=== PATIENT | female | born 1985 | race American Indian/Alaskan Native ===

== ENCOUNTER 2016-02-12 12:46 | Observation (INO) | payer MEDICAID ==
--- NOTE | 2016-02-12 13:19 | History and Physical Report ---
History of Present Illness Date of examination: 02/12/16 Date of admission: 02/12/16 12:46 Chief complaint: Low normal amniotic fluid History of present illness: 1-year-old at 32+6 weeks presents with above complaints and issues, she is a lifecycle [facility] patient. Social historypatient seen at a for history of hypertension, was seen today and noted to have an SAMANTHA of 7. Patient did complain of noticing possible leaking of fluid ~ 1 week ago so she is sent to the hospital for observation and care. 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 denies: smoking, alcohol abuse, prescription drug abuse, IV drug use - Obstetrical History Expected Date of Delivery: 04/02/16 Actual Gestation: 32 Week(s) 6 Day(s) : 3 Para: 1 Hx # Term Pregnancies: 0 Number of Pregnancies: 1 Number of Living Children: 1 Medications and Allergies Allergies Allergy/AdvReac Type Severity Reaction Status Date / Time diphenhydramine HCl Allergy Swelling Verified 12/03/12 18:50 [From Benadryl] Home Medications Medication Instructions Recorded Confirmed Last Taken Type HYDROcodone/APAP 5-325 [[place] 1 each PO Q6HR PRN #20 tablet 06/26/13 Unknown Rx 5-325 mg TAB] Orphenadrine (Nf) [Norflex] 100 mg PO Q12H PRN #14 tablet 06/26/13 Unknown Rx Review of Systems Constitutional: no fever, no chills, no sweats Cardiovascular: no chest pain, no orthopnea, no palpitations, no edema, no syncope, no lightheadedness, no shortness of breath Respiratory: no hemoptysis, no shortness of breath, no dyspnea on exertion Gastrointestinal: no abdominal pain, no nausea, no vomiting, no diarrhea Genitourinary: no vaginal bleeding (NO VB noted now), no vaginal discharge, no leakage of fluid (No leaking noted now per patient) - Physical Exam Cardiovascular: Regular rate, Normal S1, Normal S2 Lungs: Positive: Clear to auscultation Abdomen: Positive: normal appearance, soft. Negative: distention, tenderness, guarding, rigidity Genitourinary (Female): Positive: normal external genitalia Uterus: Positive: enlarged (EFW ~ 3000) Adnexa: both: normal Extremities: Positive: normal - Obstetrical FHR: category 1 Results All other labs normal. Assessment and Plan A: 30 y/o at 32+6 wks with low normal SAMANTHA -BPP 09/15 -CHTN P: -Admit -Will rule out rupture of membranes -Fluid hydration -??Repeat BPP in the a.m. - Patient Problems (1) 32 weeks gestation of Current Visit: Yes Status: Acute (2) Amniotic fluid index borderline low Current Visit: Yes Status: Acute
--- NOTE | 2016-02-12 14:04 | Event Note ---
Date: 02/12/16 Patient examined, negative nitrazine test and no fluid noted on exam; does not appear to be ruptured at this time. She is wearing a pad over 1 hour which is dry. Discussed patient again with a [facility]OCK[facility]ER, simón. Plan is to fluid hydrate and in discharge patient. She is to follow-up at [facility] office tomorrow for repeat BPP and SAMANTHA. Patient plans to discuss 17 HP and Celestone course with [facility] next visit
[2016-02-12 14:09] VITALS: BP 116/66
[2016-02-12] MEDS ORDERED: LACTATED RINGERS 500 ML IV ONE (14:30)
--- NOTE | 2016-02-12 16:43 | Event Note ---
Date: 02/12/16 Continued question about possible ruptured membrane. Sterile speculum exam performed with no fluid noted. OS closed Will D/C now, follow-up in clinic tomorrow for repeat SAMANTHA
== END 2016-02-12 17:20 | disposition home or self-care (01) ==
LOC: LD 12:46
PROVIDERS: ADMIT Obstetrics & Gynecology; ATTEND Obstetrics & Gynecology
DX: O41.03X0 Oligohydramnios, third trimester, not applicable or unspecified (principal); O10.913 Unspecified pre-existing hypertension complicating pregnancy, third trimester; Z3A.32 32 weeks gestation of pregnancy; Z98.890 Other specified postprocedural states
CPT/HCPCS: 59025; G0378; G0379; J7120; 96360

== ENCOUNTER 2016-02-13 17:00 | Outpatient (CLI) | payer MEDICAID ==
--- NOTE | 2016-02-14 07:46 | Ultrasound Report ---
BIOPHYSICAL PROFILE: INDICATION: Decreased movement. COMPARISON: None similar. TECHNIQUE: Transabdominal ultrasound with Doppler interrogation. 2 - breathing movements 2 - movements 2 - posture and tone 2 - Qualitative amniotic fluid volume 8 - TOTAL SCORE OF POSSIBLE 8 Heart Rate (bpm) 143
== END 2016-02-13 18:40 | disposition home or self-care (01) ==
LOC: TRG 17:00
PROVIDERS: ATTEND Obstetrics & Gynecology
DX: O36.8190 Decreased fetal movements, unspecified trimester, not applicable or unspecified (principal); O77.9 Labor and delivery complicated by fetal stress, unspecified; O47.9 False labor, unspecified; Z3A.00 Weeks of gestation of pregnancy not specified
CPT/HCPCS: 59025; 76819

== ENCOUNTER 2016-02-19 11:56 | Inpatient (IN) | payer MEDICAID ==
--- NOTE | 2016-02-19 15:20 | History and Physical Report ---
History of Present Illness Date of examination: 02/19/16 Date of admission: 02/19/16 14:02 Chief complaint: Leaking fluid since Wednesday History of present illness: Pt is a 30yo BF EDC 04/02/16; EGA 33 6/7 weeks presents from the office for evaluation of ROM. She states she was leaking since Wednesday, but none today , and her SAMANTHA is 5.2 She received care at [facility] since 14 weeks and course has been complicated by PTD @ 35 weeks; Marginal placenta previa and Chronic hypertension. She was evaluated at [facility] 02/12/16 when her SAMANTHA was 7cm. records are available. Past History Past Medical History: hypertension Past Surgical History: cholecystectomy, tonsillectomy, other (nose) Family/Genetic History: diabetes, hypertension, sickle cell/trait Social history: no significant social history, single - Obstetrical History Expected Date of Delivery: 04/02/16 Actual Gestation: 33 Week(s) 6 Day(s) : 3 Medications and Allergies Allergies Allergy/AdvReac Type Severity Reaction Status Date / Time diphenhydramine HCl Allergy Swelling Verified 12/03/12 18:50 [From Benadryl] latex Allergy Rash Verified 02/13/16 17:57 Home Medications Medication Instructions Recorded Confirmed Last Taken Type HYDROcodone/APAP 5-325 [[place] 1 each PO Q6HR PRN #20 tablet 06/26/13 Unknown Rx 5-325 mg TAB] Orphenadrine (Nf) [Norflex] 100 mg PO Q12H PRN #14 tablet 06/26/13 Unknown Rx Review of Systems All systems: negative - Vital Signs Vital signs: Vital Signs Pulse BP 90 124/72 02/19/16 12:30 02/19/16 12:30 Temp Pulse Resp BP Pulse Ox 90 124/72 02/19/16 12:30 02/19/16 12:30 - Physical Exam Breasts: Positive: deferred Cardiovascular: Regular rate Lungs: Positive: Clear to auscultation Abdomen: Positive: normal appearance, soft Genitourinary (Female): Positive: normal external genitalia Cervix: Positive: other (No fluid seen on Valsalva) Uterus: Positive: enlarged Extremities: Positive: normal - Obstetrical FHR: category 1 Uterine Contraction Monitor Mode: External Results All other labs normal. Ultrasound: pending Assessment and Plan - Patient Problems (1) 33 weeks gestation of Diagnosis Date: 02/19/16 Current Visit: Yes Status: Acute Plan to address problem: A: IUP @ 33 6/7 weeks Oligohydramnios Chronic hypertension P: Admit to L&D Begin IV hydration, Steroids, Antibiotics Monitor BP (2) Oligohydramnios antepartum Diagnosis Date: 02/19/16 Current Visit: Yes Status: Acute Qualifiers: Fetus number: single or unspecified fetus Trimester: third trimester Qualified Code(s): O41.03X0 - Oligohydramnios, third trimester, not applicable or unspecified (3) Chronic hypertension affecting Diagnosis Date: 02/19/16 Current Visit: Yes Status: Chronic
[2016-02-19] MEDS ORDERED: TYLENOL PO PRN (15:40)
[2016-02-19] MEDS ORDERED: SENOKOT S PO PRN (15:40)
[2016-02-19] MEDS ORDERED: AMBIEN PO PRN (15:40)
[2016-02-19] MEDS ORDERED: MYLICON PO PRN (15:40)
[2016-02-19] MEDS ORDERED: COLACE PO PRN (15:40)
[2016-02-19] MEDS ORDERED: ZOFRAN IV PRN (15:40)
[2016-02-19] MEDS ORDERED: MILK OF MAGNESIA PO PRN (15:40)
[2016-02-19] MEDS ORDERED: CELESTONE SOLUSPAN IM SCH (16:00)
[2016-02-19] MEDS: LACTATED RINGERS 1,000 ML IV SCH (17:20)
[2016-02-19] MEDS: POLYCILLIN/NS 2 GM/100 ML 100 ML IV SCH (17:21)
[2016-02-19] MEDS: ALDOMET PO SCH (22:42)
[2016-02-20] MEDS: LACTATED RINGERS 1,000 ML IV SCH (01:46)
[2016-02-20] MEDS: POLYCILLIN/NS 2 GM/100 ML 100 ML IV SCH ×3 (01:47→11:45)
[2016-02-20] MEDS: ERYTHROMYCIN LACTOBIONATE 250 MG in NACL 0.9% 100 ML IV SCH ×3 (03:29→16:08)
[2016-02-20] MEDS: ALDOMET PO SCH ×2 (05:47→14:00)
[2016-02-20 08:22] LABS: Basophils % (Auto) 1.1 % (0.0-1.8); Hematocrit 33.5 % (30.3-42.9); Hemoglobin 10.6 gm/dl (10.1-14.3); Mean Corpuscular HGB Conc 32 % (30-34); Mean Corpuscular Hemoglobin 28 pg (28-32); Mean Corpuscular Volume 87 fl (79-97); Platelet Count 238 K/mm3 (140-440); Red Blood Count 3.85 M/mm3 (3.65-5.03); Red Cell Distribution Width 16.6 % (13.2-15.2)
--- NOTE | 2016-02-20 09:01 | Admit Criteria Form ---
Admission Criteria Documentation: OBSTETRIC AND GYNECOLOGIC DISEASE GRG Clinical Indications for Admission to Inpatient Care (Place 'X' for any and all applicable criteria): Hospital admission is needed for appropriate care of the patient because of ANY ONE of the following (1)(2)(3): [ ]I. Hemodynamic instability, as indicated by ALL of the following (1)(2)(3)( 4)(5): [ ]a) Vital signs or other findings not as expected for chronic patient condition or baseline [ ]b) Instability indicated by ANY ONE of the following: [ ]i) Hypotension [ ]ii) Symptomatic tachycardia unresponsive to treatment (eg, analgesia, fluids, sedation as indicated) [ ]iii) Inadequate perfusion indicated by ANY ONE of the following: [ ]A. Lactic acidosis (greater than 2 mmol/ L) [ ]B. New abnormal capillary refill ( greater than 3 seconds) [ ]C. Reduced urine output [ ]D. New altered mental status [ ]iv) Orthostatic vital sign changes unresponsive to treatment (eg, fluids) [ ]v) Multiple IV fluid boluses required to maintain adequate blood pressure or perfusion [ ]vi) IV inotropic or vasopressor medication required to maintain adequate blood pressure or perfusion [ ]II. Obstetric infection requiring hospitalization indicated by ANY ONE of the following(13)(14): [ ]a) Chorioamnionitis [ ]b) Endometritis (except mild endometritis) [ ]c) Pelvic abscess [ ]d) Peritonitis [ ]e) Septic pelvic thrombophlebitis [ ]III. Amniotic fluid or pulmonary embolism(4)(5)(6) [ ]IV. Suspected peritonitis or ectopic requiring monitoring beyond scope of 24 hours or observation care(7)(8) [ ]V. compromise requiring hospitalization indicated by ALL of the following(9)(10): [ ]a) compromise indicated by ANY ONE of the following(11): [ ]i) Abnormal heart rate monitoring [ ]ii) Abnormal contraction stress test [ ]iii) Abnormal biophysical profile [ ]iv) Abnormal Doppler flow in vessels (ie, Doppler velocimetry) (12) [ ]b) Persistence of compromise indicators during evaluation and observation monitoring [ ]. Ovarian hyperstimulation syndrome requiring hospitalization[A] indicated by ALL of the following(15): [ ]a) Recent ovarian stimulation with gonadotropins, or evidence on ultrasound of spontaneous emergence of large number of ovarian follicles [ ]b) Evidence of severe ovarian hyperstimulation syndrome indicated by ANY ONE of the following: [ ]i) Abdominal pain unresponsive to oral therapy [ ]ii) Acute respiratory distress syndrome [ ]iii) Electrolyte imbalance ( eg, hyponatremia, hyperkalemia) [ ]iv) Elevated liver enzymes [ ]v) Evidence of thromboembolism [ ]vi) Hemoconcentration (hematocrit greater than 45 % (0.45)) [ ]vii) Inability to maintain oral intake adequate to prevent hemoconcentration [ ]viii) Marked hypotension from baseline (eg, SBP 20 mmHg below patients usual pressure) [ ]ix) Oliguria or anuria [ ]x) Ovarian torsion [ ]xi) Pleural or pericardial effusion on x-ray or echocardiogram [ ]xii) Rapid increase in serum creatinine to greater than 1.2 mg/dL (106 micromoles/L) or creatinine clearance less than 50 mL/min/1.73m2 (0.84 mL/ sec/1.73m2) [ ]xiii) Ruptured ovarian cyst with hemorrhage [ ]xiv) Severe abdominal pain or peritoneal signs [ ]xv) Tense ascites that cannot be managed with paracentesis in outpatient setting [ ]VII.Pelvic infection requiring hospitalization indicated by ANY ONE of the following (16): [ ]a) Outpatient treatment has failed or is not appropriate (eg, inpatient monitoring required) [ ]b) Pelvic abscess [ ]c) Surgical emergency cannot be excluded (eg, rigid abdomen) [ ]d) Vomiting precluding outpatient and observation care management VIII. loss complications requiring inpatient medical treatment indicated by ANY ONE of the following (4)(7)(9): [ ]a) Fever [ ]b) Peritonitis [ ]c) Sepsis [ ]d) Severe abdominal pain [ ]IX. or patient requiring monitoring for severe heart failure, pulmonary disease, or other comorbid condition (eg, peripartum cardiomyopathy) (4)(17) [ ]X. patient with rupture of membranes requiring hospitalization indicated by ANY ONE of the following: [ ]a) Chorioamnionitis, cloudy amniotic fluid, or other evidence of infection [ ]b) compromise or other need for monitoring (11) [ ]c) Gestation longer than 23 weeks and ANY ONE of the following: [ ]i) Abnormal (noncephalic) presentation [ ]ii) Inadequate home environment (eg, home too far from hospital, unable to rapidly return to hospital) [ ]d) Temperature greater than 100.4 degrees F (38 degrees C)( oral) [ ]e) Threatened labor requiring monitoring beyond scope (eg, over 24 hours) of observation Care [ ] XI. complications, including severe lacerations, infections, or retained placenta (19) [ ] XII.Uterine bleeding with high-risk features indicated by ANY ONE of the following (4): [ ]a) Active major hemorrhage (eg, hemorrhage) [ ]b) Coagulopathy with active bleeding [ ]c) Gestational trophoblastic disease (eg, molar ) (20 ) [ ]d) (longer than 23 weeks) and ANY ONE of the following: [ ]i) Pain [ ]ii) Placental abruption, known or suspected [ ]iii) Placenta accrete, known or suspected(21) [ ]iv) Placenta previa, known or suspected [ ]v) Vasa previa [ ]e) Severe anemia [X ]XIII. Obstetric or Gynecologic Disease, condition or symptom for which ANY ONE of the following: [X ]a) Emergency and observation care have failed or are not considered appropriate ( Also use General Criteria: Observation Care Criteria as appropriate) [ ]b) Presence of a General Admission Criteria or Pediatric General Admission Criteria The original [facility] [employer] content created by [facility] (now [employer]) has been revised. The portions of the content which have been revised are identified through the use of italic text or in bold, and [facility] has neither reviewed nor approved the modified material.All other unmodified content is copyright [facility]. Please see references footnoted in the original [facility] edition 2016 Admission Criteria Met: Yes
[2016-02-20] MEDS ORDERED: PRENATAL VITAMIN PO SCH (10:00)
--- NOTE | 2016-02-20 10:18 | Progress Note ---
Assessment and Plan - Patient Problems (1) 33 weeks gestation of Diagnosis Date: 02/19/16 Current Visit: Yes Status: Resolved (2) Oligohydramnios antepartum Diagnosis Date: 02/19/16 Current Visit: Yes Status: Resolved Qualifiers: Fetus number: single or unspecified fetus Trimester: third trimester Qualified Code(s): O41.03X0 - Oligohydramnios, third trimester, not applicable or unspecified (3) Chronic hypertension affecting Diagnosis Date: 02/19/16 Current Visit: Yes Status: Chronic (4) 34 weeks gestation of Diagnosis Date: 02/20/16 Current Visit: Yes Status: Acute Plan to address problem: A: IUP @ 34 0/7 weeks Chronic hypertension - stable on Aldomet 500mg TID Oligohydramnios - resolved with IV hydration P: May go home today after 2nd dose of steroids. Subjective - Subjective Date of service: 02/20/16 Principal diagnosis: IUP @ 34 0/7 weeks; Oligohydramnios; Chronic hypertension Interval history: Pt is a 30yo BF EDC 04/02/16; EGA 34 0/7 weeks presented from the office for evaluation of ROM. She states she was leaking since Wednesday, but none since admission when her SAMANTHA was 5.2 Repeat SAMANTHA today is 10.0 and BP's have been 117- 132/70-77 on Aldomet 500mg TID. Patient reports: movement normal, no new complaints, no loss of fluid, no vaginal bleeding, no contractions Objective - Vital Signs Vital Signs: Vital Signs - 12hr 02/19/16 02/19/16 02/19/16 22:42 22:43 22:47 Temperature Pulse Rate 83 83 80 Pulse Rate [ From Monitor] Respiratory Rate Blood Pressure 124/72 124/72 127/70 Blood Pressure [Left Arm] 02/19/16 02/20/16 02/20/16 23:47 00:47 01:49 Temperature Pulse Rate 93 H 86 91 H Pulse Rate [ From Monitor] Respiratory Rate Blood Pressure 126/66 117/64 118/61 Blood Pressure [Left Arm] 02/20/16 02/20/16 02/20/16 02:47 04:18 04:47 Temperature Pulse Rate 96 H 97 H 75 Pulse Rate [ From Monitor] Respiratory Rate Blood Pressure 110/64 125/74 124/72 Blood Pressure [Left Arm] 02/20/16 02/20/16 02/20/16 05:46 05:47 06:48 Temperature Pulse Rate 86 79 83 Pulse Rate [ From Monitor] Respiratory Rate Blood Pressure 126/73 129/74 132/77 Blood Pressure [Left Arm] 02/20/16 02/20/16 02/20/16 07:52 07:53 08:47 Temperature 97.5 F L Pulse Rate 87 93 H Pulse Rate [ 87 From Monitor] Respiratory 18 Rate Blood Pressure 124/77 117/70 Blood Pressure 124/77 [Left Arm] 02/20/16 09:47 Temperature Pulse Rate 92 H Pulse Rate [ From Monitor] Respiratory Rate Blood Pressure 128/72 Blood Pressure [Left Arm] - Exam Abdomen: Present: normal appearance, soft Uterus: Present: normal FHR: category 1 Uterine Contraction Monitor Mode: External - Labs Labs: Abnormal Labs 02/20/16 07:46 RDW 16.6 H Lymph % (Auto) 9.6 L Lymph # 1.1 L Seg Neutrophils % 86.0 H Seg Neutrophils # 9.5 H Laboratory Results - last 24 hr 02/20/16 02/20/16 07:46 07:46 WBC 11.0 RBC 3.85 Hgb 10.6 Hct 33.5 MCV 87 MCH 28 MCHC 32 RDW 16.6 H Plt Count 238 Lymph % (Auto) 9.6 L Pershing % (Auto) 3.3 Eos % (Auto) 0.0 Baso % (Auto) 1.1 Lymph # 1.1 L Pershing # 0.4 Eos # 0.0 Baso # 0.1 Seg Neutrophils % 86.0 H Seg Neutrophils # 9.5 H Blood Type A POSITIVE Antibody Screen Negative - Results US- obstetric: report reviewed (SAMANTHA 10.0; Ant right lateral placenta)
--- NOTE | 2016-02-20 10:34 | Discharge Summary ---
Providers - Providers Date of Admission: 02/19/16 14:02 Date of discharge: 02/20/16 Attending physician: VICKY SAENZ MD Primary care physician: VICKY SAENZ MD Hospitalization Reason for admission: IUP - , observation, other (Oligohydramnios; Chronic hypertension) Discharge diagnosis: other (IUP @ 34 0/7 weeks; Chronic hypertension - stable; Oligohydramnios - resolved) Pertinent studies: Repeat U/S showed SAMANTHA 10.0 Hospital course: Pt is a 30yo BF EDC 04/02/16; EGA 34 0/7 weeks presented from the office for evaluation of ROM. She states she was leaking since Wednesday, but none since admission when her SAMANTHA was 5.2 She was admitted for Observation and received IV hydration. Repeat SAMANTHA today is 10.0 and BP's have been 117-132/70-77 on Aldomet 500mg TID. She will therefore be discharged to home today after her 2nd dose of Celestone. Condition at discharge: Good Disposition: DISCHARGED TO HOME OR SELFCARE - Discharge Diagnoses (1) 33 weeks gestation of Status: Resolved (2) Oligohydramnios antepartum Status: Resolved Qualifiers: Fetus number: single or unspecified fetus Trimester: third trimester Qualified Code(s): O41.03X0 - Oligohydramnios, third trimester, not applicable or unspecified (3) Chronic hypertension affecting Status: Chronic (4) 34 weeks gestation of Status: Acute Plan - Provider Discharge Summary Activity: routine, no sex for 6 weeks, no heavy lifting 4 weeks, no strenuous exercise Diet: routine Instructions: routine Additional instructions: [] Smoking cessation referral if applicable(refer to patient education folder for contact #) [] Refer to [facility] Booklet Call your doctor immediately for: * Fever > 100.5 * Heavy vaginal bleeding ( >1 pad per hour) * Severe persistent headache * Shortness of breath * Reddened, hot, painful area to leg or breast * Drainage or odor from incision. * Keep incision clean and dry at all times and follow doctor's instructions regarding bathing/showering
--- NOTE | 2016-02-20 13:14 | Ultrasound Report ---
Limited OB ultrasound: There is a espinosa intrauterine gestation in cephalic position with a heart rate of 138 beats per minute. There is a grade 1 felipa-right lateral placenta. No placental abnormalities identified. The SAMANTHA is 10 cm which is within the normal range. The estimated gestational age is 34 weeks. No other information obtained.
[2016-02-20 13:20] LABS: Bacteria,Urine 1+ /HPF (Negative); Bilirubin,Urine NEG (Negative); Blood,Urine NEG (Negative); Ketones,Urine TR mg/dL (Negative); Leukocyte Esterase,Urine NEG (Negative); Mucus,Urine FEW /HPF; Nitrite,Urine NEG (Negative); Protein,Urine <15 mg/dL mg/dL (Negative); Urobilinogen,Urine < 2.0 mg/dL (<2.0); WBC,Urine < 1.0 /HPF (0.0-6.0)
[2016-02-20 16:51] VITALS: BP 120/58
[2016-02-20] MEDS ORDERED: CELESTONE SOLUSPAN IM ONE (17:35)
[2016-02-21] MEDS ORDERED: CELESTONE SOLUSPAN IM SCH (18:30)
== END 2016-02-20 17:41 | disposition home or self-care (01) | DRG 781 ==
LOC: TRG 11:56 → LD 11:56 → OBSVTOIN 14:02 → LD 14:02 → TRG 14:02 → LD 18:44
PROVIDERS: ADMIT Obstetrics & Gynecology; ATTEND Obstetrics & Gynecology
DX: O42.913 Preterm premature rupture of membranes, unspecified as to length of time between rupture and onset of labor, third trimester (principal); O10.913 Unspecified pre-existing hypertension complicating pregnancy, third trimester; O41.03X0 Oligohydramnios, third trimester, not applicable or unspecified; Z90.49 Acquired absence of other specified parts of digestive tract; Z88.8 Allergy status to other drugs, medicaments and biological substances; Z91.040 Latex allergy status; Z3A.33 33 weeks gestation of pregnancy; O44.23 Partial placenta previa NOS or without hemorrhage, third trimester
CPT/HCPCS: 36415; 76815; 81001; 85025; 86850; 86900; 86901; J0290; J0702; J1364; J7120

== ENCOUNTER 2016-02-25 17:06 | Outpatient (CLI) | payer MEDICAID ==
[2016-02-25] MEDS ORDERED: LACTATED RINGERS 500 ML IV ONE (18:00)
[2016-02-25 18:40] LABS: Bilirubin,Urine NEG (Negative); Blood,Urine NEG (Negative); Ketones,Urine NEG (Negative); Leukocyte Esterase,Urine NEG (Negative); Mucus,Urine FEW /HPF; Nitrite,Urine NEG (Negative); Protein,Urine <15 mg/dL mg/dL (Negative); Urobilinogen,Urine < 2.0 mg/dL (<2.0)
[2016-02-25 18:46] VITALS: BP 108/64
--- NOTE | 2016-02-26 07:11 | Ultrasound Report ---
BIOPHYSICAL PROFILE: INDICATION: Vaginal bleeding. COMPARISON: 02/13/2016. TECHNIQUE: Transabdominal ultrasound with Doppler interrogation. 2 - breathing movements 2 - movements 2 - posture and tone 2 - Qualitative amniotic fluid volume 8 - TOTAL SCORE OF POSSIBLE 8 Heart Rate (bpm) 142
--- NOTE | 2016-02-26 07:13 | Ultrasound Report ---
OB LIMITED INDICATION: Vaginal bleeding. SAMANTHA, placenta scan. COMPARISON: 02/20/2016 TECHNIQUE: Transabdominal grayscale ultrasound with Doppler interrogation. Gestation: [place] Position: Cephalic Amniotic Fluid: WNL (7-24 cm) SAMANTHA = 11.8 cm Placenta: Anterior and right lateral; no evidence of abruption. Placental Grade: I Heart Rate: 142 BPM
== END 2016-02-25 19:46 | disposition home or self-care (01) ==
LOC: TRG 17:06
PROVIDERS: ATTEND Obstetrics & Gynecology
DX: O46.90 Antepartum hemorrhage, unspecified, unspecified trimester (principal); O77.9 Labor and delivery complicated by fetal stress, unspecified; Z3A.00 Weeks of gestation of pregnancy not specified
CPT/HCPCS: 59025; 76815; 76819; 81001; 96360; J7120

== ENCOUNTER 2016-03-20 18:49 | Inpatient (IN) | payer MEDICAID ==
[2016-03-20] MEDS ORDERED: BRETHINE SUB-Q PRN (20:09)
[2016-03-20] MEDS ORDERED: BRETHINE IVP PRN (20:09)
[2016-03-20] MEDS ORDERED: ePHEDrine SULFATE IV PRN (20:09)
[2016-03-20] MEDS ORDERED: MINERAL OIL PO PRN (20:09)
--- NOTE | 2016-03-20 20:26 | History and Physical Report ---
<ARTHUR BERNSTEIN - Last Filed: 03/20/16 20:15> History of Present Illness Date of examination: 03/20/16 Date of admission: 03/20/16 18:49 Chief complaint: Here for induction of labor secondary to hypertension and oligohydramnious. Induction recommended by [facility] History of present illness: 30 YO now 38.1 weeks with care at [facility] since 14 weeks gestation.Chronic hypertension controlled with Methyldopa 500 mg tid. She has been co-managed with [facility]. Past History Past Medical History: hypertension Past Surgical History: cholecystectomy, tonsillectomy, other (adenoids, nose surgery) Family/Genetic History: diabetes, heart disease, sickle cell/trait Social history: no significant social history - Obstetrical History Expected Date of Delivery: 04/02/16 Actual Gestation: 38 Week(s) 1 Day(s) : 3 Para: 1 Number of Pregnancies: 1 Spontaneous Abortions: 1 Number of Living Children: 1 Medications and Allergies Allergies Allergy/AdvReac Type Severity Reaction Status Date / Time diphenhydramine HCl Allergy Swelling Verified 12/03/12 18:50 [From Benadryl] latex Allergy Rash Verified 02/13/16 17:57 Home Medications Medication Instructions Recorded Confirmed Last Taken Type HYDROcodone/APAP 5-325 [[place] 1 each PO Q6HR PRN #20 tablet 06/26/13 Unknown Rx 5-325 mg TAB] Orphenadrine (Nf) [Norflex] 100 mg PO Q12H PRN #14 tablet 06/26/13 Unknown Rx Review of Systems All systems: negative - Vital Signs Vital signs: Vital Signs Pulse BP 95 H 124/70 03/20/16 19:45 03/20/16 19:45 Temp Pulse Resp BP Pulse Ox 98.1 F 93 H 18 118/67 97 03/20/16 20:09 03/20/16 20:12 03/20/16 20:09 03/20/16 20:11 03/20/16 20:12 Results All other labs normal. <MELY REILLY - Last Filed: 03/21/16 10:28> History of Present Illness Date of admission: 03/20/16 18:49 Medications and Allergies Active Meds: Active Medications Fentanyl (Sublimaze) 100 mcg IV Q2H PRN PRN Reason: Labor Pain Last Admin: 03/21/16 07:44 Dose: 100 mcg Lactated Ringer's (Lactated Ringers) 1,000 mls @ 125 mls/hr IV DIRECT YOAN Last Admin: 03/21/16 09:21 Dose: 125 mls/hr Oxytocin/Sodium Chloride (Pitocin/Ns 20 Unit/1000ml Drip) 20 unit in 1,000 mls @ 125 mls/hr IV DIRECT YOAN Oxytocin/Sodium Chloride (Pitocin/Ns 30 Unit/500ml) 30 unit in 500 mls @ 1 mls/ hr IV TITR YOAN; 1 MILLIUNITS/MIN PRN Reason: Protocol Last Admin: 03/21/16 09:19 Dose: 6 milliunits/min, 6 mls/hr Mineral Oil (Mineral Oil) 30 ml PO QHS PRN PRN Reason: Constipation - Vital Signs Vital signs: Vital Signs Pulse BP 95 H 124/70 03/20/16 19:45 03/20/16 19:45 Temp Pulse Resp BP Pulse Ox 98.1 F 80 18 120/69 97 03/21/16 07:30 03/21/16 10:19 03/21/16 07:30 03/21/16 10:19 03/21/16 10:19 - Physical Exam Cardiovascular: Regular rate Lungs: Positive: Normal air movement Abdomen: Positive: soft Vagina: Positive: normal moisture Uterus: Positive: enlarged, normal contour Extremities: Positive: normal Deep Tendon Reflex Grade: Normal +2 - Obstetrical FHR: category 1 Uterine Contraction Monitor Mode: External Cervical Dilatation: 4 (per RN) Cervical Effacement Percentage: 60 station: -3 Uterine Contraction Pattern: Regular Uterine Contraction Intensity: Moderate Results Result Diagrams: 03/20/16 20:50 Abnormal lab results 03/20/16 Range/Units 20:50 RDW 16.3 H (13.2-15.2) % All other labs normal. Assessment and Plan A: 30 yo at 38.2 in for IOL for chronic HTN and oligo per [facility] direction GBS negative Reassuring status with category 1 tracing Increasing pain with contractions BP stable P: Continue routine care Pitocin augmentation Epidural as desired. Expect vaginal delivery
[2016-03-20] MEDS ORDERED: PITOCin/NS 20 UNIT/1000ML DRIP 20 UNIT/1,000 ML BAG IV SCH (21:00)
[2016-03-20 21:21] LABS: Hematocrit 32.8 % (30.3-42.9); Hemoglobin 10.4 gm/dl (10.1-14.3); Mean Corpuscular HGB Conc 32 % (30-34); Mean Corpuscular Hemoglobin 28 pg (28-32); Mean Corpuscular Volume 87 fl (79-97); Platelet Count 265 K/mm3 (140-440); Red Blood Count 3.76 M/mm3 (3.65-5.03); Red Cell Distribution Width 16.3 % (13.2-15.2)
--- NOTE | 2016-03-20 22:03 | Progress Note ---
Subjective - Subjective Date of service: 03/20/16 Interval history: Asked to review tracing. Fetus with run of tachycardia but now resolved. Currently has mod variability, no decels Patient reports: loss of fluid, movement normal, no vaginal bleeding Objective - Vital Signs Vital Signs: Vital Signs - 12hr 03/20/16 03/20/16 03/20/16 19:45 20:02 20:07 Temperature Pulse Rate 95 H 105 H 97 H Pulse Rate [ Right From Monitor] Respiratory Rate Blood Pressure 124/70 Blood Pressure [Right Arm] O2 Sat by Pulse 98 97 Oximetry 03/20/16 03/20/16 03/20/16 20:09 20:11 20:12 Temperature 98.1 F Pulse Rate 97 H 93 H Pulse Rate [ 92 H Right From Monitor] Respiratory 18 Rate Blood Pressure 118/67 Blood Pressure 118/67 [Right Arm] O2 Sat by Pulse 97 97 Oximetry 03/20/16 03/20/16 03/20/16 20:17 20:22 20:27 Temperature Pulse Rate 91 H 94 H 95 H Pulse Rate [ Right From Monitor] Respiratory Rate Blood Pressure Blood Pressure [Right Arm] O2 Sat by Pulse 97 97 98 Oximetry 03/20/16 03/20/16 03/20/16 20:32 20:37 20:42 Temperature Pulse Rate 102 H 100 H 103 H Pulse Rate [ Right From Monitor] Respiratory Rate Blood Pressure Blood Pressure [Right Arm] O2 Sat by Pulse 97 98 97 Oximetry 03/20/16 03/20/16 03/20/16 20:47 20:52 20:57 Temperature Pulse Rate 91 H 99 H 86 Pulse Rate [ Right From Monitor] Respiratory Rate Blood Pressure Blood Pressure [Right Arm] O2 Sat by Pulse 98 97 97 Oximetry 03/20/16 03/20/16 03/20/16 21:02 21:07 21:12 Temperature Pulse Rate 81 87 92 H Pulse Rate [ Right From Monitor] Respiratory Rate Blood Pressure Blood Pressure [Right Arm] O2 Sat by Pulse 99 97 98 Oximetry 03/20/16 03/20/16 03/20/16 21:17 21:22 21:27 Temperature Pulse Rate 90 91 H 88 Pulse Rate [ Right From Monitor] Respiratory Rate Blood Pressure Blood Pressure [Right Arm] O2 Sat by Pulse 97 97 98 Oximetry 03/20/16 03/20/16 03/20/16 21:32 21:37 21:42 Temperature Pulse Rate 92 H 95 H 98 H Pulse Rate [ Right From Monitor] Respiratory Rate Blood Pressure Blood Pressure [Right Arm] O2 Sat by Pulse 96 97 97 Oximetry 03/20/16 03/20/16 03/20/16 21:47 21:52 21:57 Temperature Pulse Rate 89 90 88 Pulse Rate [ Right From Monitor] Respiratory Rate Blood Pressure Blood Pressure [Right Arm] O2 Sat by Pulse 97 97 97 Oximetry - Exam FHR: category 1 - Labs Labs: Abnormal Labs 03/20/16 20:50 RDW 16.3 H Laboratory Results - last 24 hr 03/20/16 03/20/16 20:50 20:50 WBC 8.0 RBC 3.76 Hgb 10.4 Hct 32.8 MCV 87 MCH 28 MCHC 32 RDW 16.3 H Plt Count 265 Blood Type A POSITIVE Antibody Screen Negative
[2016-03-20] MEDS ORDERED: CERVIDIL VG ONE (22:40)
[2016-03-21] MEDS: SUBLIMAZE IV PRN ×3 (03:30→13:04)
[2016-03-21] MEDS: PITOCin/NS 30 UNIT/500ML 30 UNIT/500 ML BAG IV SCH ×6 (08:01→14:40)
[2016-03-21] MEDS: LACTATED RINGERS 1,000 ML IV SCH ×2 (09:21→14:36)
--- NOTE | 2016-03-21 10:48 | Event Note ---
Date: 03/21/16 S: at 38.2 IOL for CHTN and oligo Comfortable with spinal epidural dosing O: FHT category 1 BP stable SVE: 50/-2, edematous cervix Pitocin augmentation A: at 38.2 weeks IOL GBS negative P: AROM clear fluid Continue pitocin Manage pain with IV pain mediation and spinal epidural dosing
[2016-03-21] MEDS ORDERED: STADOL ONE (14:05)
[2016-03-21] MEDS ORDERED: STADOL IV PRN (14:11)
--- NOTE | 2016-03-21 17:14 | Procedure Note ---
OB Delivery Note - Delivery Date of Delivery: 03/21/16 (6698) Surgeon: MELY REILLY Estimated blood loss: 200cc - Vaginal Delivery presentation: vertex Delivery position: OA Intrapartum events: mult. late decelerations Delivery induction: oxytocin Delivery augmentation: rupture of membranes, pitocin Delivery monitor: internal FHT, internal uterine Route of delivery: Delivery placenta: spontaneous Delivery cord: 3 umbilical vessels Delivery laceration: none Anesthesia: intravenous, other (1 dose of spinal anesthesia given. Unable to place epidural.) Delivery comments: Baby girl Shante (5.15) was delivered on 03/21/16 at 1402 over an intact perineum. responded to stimulation and was placed with mom for skin to skin. Cord was clamped at 5 minutes of life and cut by FOB. Fundus firm and 3 cm below umbilicus. Lochia scant. Mom and baby doing well. - A at 1 minute: 9 at 5 minutes: 9 Gender: Female (Shante 5.15)
[2016-03-21] MEDS ORDERED: LANSINOH TP PRN (17:18)
[2016-03-21] MEDS ORDERED: DULCOLAX PR PRN (17:18)
[2016-03-21] MEDS ORDERED: ZOFRAN IV PRN (17:18)
[2016-03-21] MEDS ORDERED: TUCKS PAD TP PRN (17:18)
[2016-03-21] MEDS ORDERED: TYLENOL PO PRN (17:18)
[2016-03-21] MEDS ORDERED: MILK OF MAGNESIA PO PRN (17:18)
[2016-03-21] MEDS ORDERED: DERMOPLAST TP PRN (17:18)
[2016-03-21] MEDS ORDERED: ANUCORT-HC PR PRN (17:18)
[2016-03-21] MEDS ORDERED: SODIUM CHLORIDE FLUSH SYRINGE 10 ML IV NR (18:00)
[2016-03-21] MEDS: COLACE PO SCH (22:36)
[2016-03-21] MEDS: MOTRIN PO SCH (22:37)
[2016-03-22] MEDS ORDERED: BOOSTRIX IM ONE (06:18)
[2016-03-22] MEDS: MOTRIN PO SCH ×4 (06:53→19:21)
[2016-03-22 08:54] LABS: Hematocrit 31.4 % (30.3-42.9); Hemoglobin 9.9 gm/dl (10.1-14.3)
[2016-03-22] MEDS ORDERED: EVISTA PO SCH (10:00)
[2016-03-22] MEDS ORDERED: PRENATAL VITAMIN PO SCH (10:00)
[2016-03-22] MEDS: COLACE PO SCH ×2 (10:11→22:40)
--- NOTE | 2016-03-22 11:32 | Progress Note ---
Assessment and Plan A: PPD #1 Stable P: Hold BP meds, normotensive at present time Discharge in am Subjective - Subjective Date of service: 03/22/16 Principal diagnosis: , Chronic HTN Interval history: 30 YO now 38.1 weeks with care at [facility] since 14 weeks gestation.Chronic hypertension controlled with Methyldopa 500 mg tid. She has been co-managed with [facility]. Patient reports: appetite normal : doing well Objective - Vital Signs Latest vital signs: Vital Signs Temp Pulse Pulse Resp BP BP Pulse Ox 03/22/16 08:37 98.2 F 65 20 121/60 03/22/16 06:53 18 03/22/16 00:15 98.4 F 73 20 116/69 03/21/16 22:37 18 03/21/16 20:50 99.0 F 66 20 120/67 03/21/16 18:00 98.7 F 57 L 18 131/59 03/21/16 17:19 67 122/68 03/21/16 17:04 75 123/66 03/21/16 16:55 83 120/62 03/21/16 16:50 68 121/58 03/21/16 16:34 75 121/58 03/21/16 16:20 98.2 F 67 18 125/60 03/21/16 16:19 67 125/60 03/21/16 16:06 74 133/67 03/21/16 16:04 89 130/63 03/21/16 15:54 80 99 03/21/16 15:50 71 126/67 03/21/16 15:49 92 H 99 03/21/16 15:44 84 99 03/21/16 15:39 78 99 03/21/16 15:35 86 129/71 03/21/16 15:34 83 100 03/21/16 15:29 89 100 03/21/16 15:24 72 94 03/21/16 15:19 72 129/68 100 03/21/16 15:16 54 L 87 03/21/16 15:14 85 98 03/21/16 15:09 86 99 03/21/16 15:04 69 134/75 98 03/21/16 14:59 95 H 98 03/21/16 14:54 72 100 03/21/16 14:49 77 99 03/21/16 14:44 74 100 03/21/16 14:39 87 99 03/21/16 14:34 74 130/69 99 03/21/16 14:29 79 99 03/21/16 14:24 84 100 03/21/16 14:20 93 H 143/90 03/21/16 14:19 101 H 95 03/21/16 14:18 75 94 03/21/16 14:14 85 95 03/21/16 14:13 78 94 03/21/16 14:09 87 97 03/21/16 14:04 75 136/92 94 03/21/16 13:59 78 96 03/21/16 13:55 79 93 03/21/16 13:54 79 97 03/21/16 13:49 77 127/62 99 03/21/16 13:44 88 97 03/21/16 13:39 72 95 03/21/16 13:34 70 125/58 95 03/21/16 13:29 76 96 03/21/16 13:24 75 96 03/21/16 13:19 75 124/60 96 03/21/16 13:14 77 96 03/21/16 13:09 72 95 03/21/16 13:05 70 119/58 03/21/16 13:04 80 93 03/21/16 12:59 93 H 96 03/21/16 12:54 70 97 03/21/16 12:49 77 116/63 96 03/21/16 12:44 84 97 03/21/16 12:39 74 96 03/21/16 12:34 68 117/59 96 03/21/16 12:29 74 97 03/21/16 12:26 98.1 F 18 97 03/21/16 12:24 82 98 03/21/16 12:19 75 118/61 98 03/21/16 12:14 84 96 03/21/16 12:09 80 96 03/21/16 12:05 70 124/77 03/21/16 12:04 74 97 03/21/16 11:59 62 97 03/21/16 11:54 79 96 03/21/16 11:49 84 121/64 97 03/21/16 11:44 78 97 03/21/16 11:39 80 96 03/21/16 11:36 68 132/85 03/21/16 11:34 70 97 Intake and Output 03/21/16 03/22/16 03/22/16 22:59 06:59 14:59 Intake Total 860 360 120 Output Total 700 300 400 Balance 160 60 -280 Intake: IV 500 PITOCin/NS 20 UNIT/1000ML 500 DRIP 20 unit In 1,000 ml @ 125 mls/hr IV DIRECT YOAN Rx#:[id number] Oral 360 360 120 Output: Urine 700 300 400 Void 700 300 400 Other: Total, Intake Amount 360 120 120 Total, Output Amount 300 300 400 Voiding Method Toilet # Voids Void 1 Estimated Blood Loss 200 - Exam Breasts: Present: deferred, Cardiovascular: Present: Regular rate Lungs: Present: Clear to auscultation Abdomen: Present: soft Vulva: both: normal Uterus: Present: fundal height below umbilicus Extremities: Present: normal Deep Tendon Reflex Grade: Normal +2 - Labs Labs: Abnormal lab results 03/22/16 Range/Units 08:31 Hgb 9.9 L (10.1-14.3) gm/dl
--- NOTE | 2016-03-22 11:34 | Discharge Summary ---
Providers - Providers Date of Admission: 03/20/16 18:49 Date of discharge: 03/23/16 Attending physician: VICKY SAENZ MD Primary care physician: VICKY SAENZ MD Hospitalization Reason for admission: induction of labor Delivery: Episiotomy: none Laceration: none Other procedures: none complications: none Discharge diagnosis: IUP at term delivered baby: female Condition at discharge: Good Disposition: DISCHARGED TO HOME OR SELFCARE Plan - Provider Discharge Summary Activity: routine, no sex for 6 weeks, no strenuous exercise Diet: routine Instructions: routine Additional instructions: [] Smoking cessation referral if applicable(refer to patient education folder for contact #) [] Refer to [facility] Booklet Call your doctor immediately for: * Fever > 100.5 * Heavy vaginal bleeding ( >1 pad per hour) * Severe persistent headache * Shortness of breath * Reddened, hot, painful area to leg or breast * Drainage or odor from incision. * Keep incision clean and dry at all times and follow doctor's instructions regarding bathing/showering - Follow up plan Follow up: [facility] [Provider Group] - 14 Days
--- NOTE | 2016-03-22 14:50 | Progress Note ---
Subjective Date of service: 03/22/16 Principal diagnosis: , Chronic HTN Interval history: Multiple attempts at placing epidural were unsuccessful and one resulted in apparent dural puncture. The procedure was aborted. Patient is awake and alert. She is mobile but has minor back pain. She denies headache. Objective - Constitutional Vitals: Vital Signs - 12hr 03/22/16 03/22/16 06:53 08:37 Temperature 98.2 F Pulse Rate [ 65 Right From Monitor] Respiratory 18 20 Rate Blood Pressure 121/60 [Right Arm] - Labs CBC & Chem 7: 03/22/16 08:31 Labs: Abnormal lab results 03/22/16 Range/Units 08:31 Hgb 9.9 L (10.1-14.3) gm/dl
[2016-03-23] MEDS: MOTRIN PO SCH ×2 (00:30→06:04)
[2016-03-23 09:10] VITALS: BP 128/72
== END 2016-03-23 10:20 | disposition home or self-care (01) | DRG 774 ==
LOC: LD 18:49 → OB 03-21 17:55
PROVIDERS: ADMIT Obstetrics & Gynecology; ATTEND Obstetrics & Gynecology
PROC: 10E0XZZ Delivery of Products of Conception, External Approach (ICD-10-PCS; principal; 2016-03-21)
PROC: 10907ZC Drainage of Amniotic Fluid, Therapeutic from Products of Conception, Via Natural or Artificial Opening (ICD-10-PCS; 2016-03-21)
PROC: 3E033VJ Introduction of Other Hormone into Peripheral Vein, Percutaneous Approach (ICD-10-PCS; 2016-03-21)
DX: O10.92 Unspecified pre-existing hypertension complicating childbirth (principal); O41.03X0 Oligohydramnios, third trimester, not applicable or unspecified; O76 Abnormality in fetal heart rate and rhythm complicating labor and delivery; Z3A.38 38 weeks gestation of pregnancy; Z88.8 Allergy status to other drugs, medicaments and biological substances; Z91.040 Latex allergy status
CPT/HCPCS: 36415; 85014; 85018; 85027; 86850; 86900; 86901; 90471; 90715; J0595; J2590; J3010; J7120

== ENCOUNTER 2018-08-22 18:05 | Emergency (ER) | payer MEDICAID, SELFPAY ==
[2018-08-22 20:54] VITALS: BP 151/83
--- NOTE | 2018-08-22 21:21 | Emergency Department Report ---
ED General Adult HPI - General Chief complaint: Skin Rash Stated complaint: ALLERGIC REACTION/HIGH BP Time Seen by Provider: 08/22/18 21:00 Source: patient Mode of arrival: Ambulatory Limitations: No Limitations - History of Present Illness Initial comments: Ms. Anand is a 33-year-old female with history of hypertension depression and bipolar disorder presents with skin rash and need for medication refill. She has a faint erythematous rash after sun exposure [place] local [place]. She also takes amlodipine 10 mg tablets. She recently moved from [facility]. She politely requests medication refill. She has been unable to find a primary care physician due to her heavy work schedule. In regard to the rash, she's also had a skin sensitivity to sun exposure sent a young age. She normally treats the rash with ufzy-hij-vtwbgni medications or home remedies. Her rash has since improved. -: Gradual, days(s) (1) Location: left, right, upper extremity, lower extremity Severity scale (0 -10): 5 Quality: burning Consistency: constant Improves with: medication Worsens with: other (sun exposure) - Related Data Previous Rx's Medication Instructions Recorded Last Taken Type HYDROcodone/APAP 5-325 [[place] 1 each PO Q6HR PRN #20 tablet 06/26/13 Unknown Rx 5-325 mg TAB] Orphenadrine (Nf) [Norflex] 100 mg PO Q12H PRN #14 tablet 06/26/13 Unknown Rx Amlodipine Besylate [Norvasc] 10 mg PO DAILY #90 tablet 08/22/18 Unknown Rx Allergies Allergy/AdvReac Type Severity Reaction Status Date / Time diphenhydramine HCl Allergy Swelling Verified 12/03/12 18:50 [From Benadryl] latex Allergy Rash Verified 02/13/16 17:57 ED Review of Systems ROS: Stated complaint: ALLERGIC REACTION/HIGH BP Other details as noted in HPI Comment: All other systems reviewed and negative Constitutional: denies: fever, malaise Respiratory: denies: cough Cardiovascular: denies: chest pain ED Past Medical Hx - Past Medical History Previous Medical History?: Yes Hx Hypertension: Yes Hx Congestive Heart Failure: No Hx Diabetes: No Hx Deep Vein Thrombosis: No Hx Renal Disease: No Hx Sickle Cell Disease: No Hx Seizures: No Hx Psychiatric Treatment: Yes (depression, bi polar) Hx Asthma: No Hx COPD: No Hx HIV: No - Surgical History Past Surgical History?: Yes Hx Cholecystectomy: Yes - Social History Smoking Status: Unknown if ever smoked Substance Use Type: None - Medications Home Medications: Home Medications Medication Instructions Recorded Confirmed Last Taken Type HYDROcodone/APAP 5-325 [[place] 1 each PO Q6HR PRN #20 tablet 06/26/13 03/22/16 Unknown Rx 5-325 mg TAB] Orphenadrine (Nf) [Norflex] 100 mg PO Q12H PRN #14 tablet 06/26/13 03/22/16 Unknown Rx Amlodipine Besylate [Norvasc] 10 mg PO DAILY #90 tablet 08/22/18 Unknown Rx ED Physical Exam - General Limitations: No Limitations General appearance: alert, in no apparent distress - Head Head exam: Present: atraumatic, normocephalic - Eye Eye exam: Present: normal appearance - ENT ENT exam: Present: mucous membranes moist - Neck Neck exam: Present: normal inspection, full ROM - Respiratory Respiratory exam: Present: normal lung sounds bilaterally. Absent: respiratory distress, wheezes, rales, rhonchi - Cardiovascular Cardiovascular Exam: Present: regular rate, normal rhythm, normal heart sounds. Absent: systolic murmur, diastolic murmur, rubs, gallop - GI/Abdominal GI/Abdominal exam: Present: soft, normal bowel sounds. Absent: distended, tenderness, guarding, rebound - Extremities Exam Extremities exam: Present: normal inspection - Back Exam Back exam: Present: normal inspection - Neurological Exam Neurological exam: Present: alert, oriented X3 - Psychiatric Psychiatric exam: Present: normal affect, normal mood - Skin Skin exam: Present: warm, dry, intact, normal color, other (faint papular rash barely noticeable to the eye). Absent: rash ED Course Vital Signs 08/22/18 08/22/18 18:28 20:40 Temperature 98.2 F 99.1 F Pulse Rate 67 78 Respiratory 18 16 Rate Blood Pressure 158/98 Blood Pressure 151/83 [Left] O2 Sat by Pulse 98 100 Oximetry ED Medical Decision Making - Medical Decision Making 1. Sunburn, or dermatitis patient has treated the rash effectively with home remedy and emvv-lzn-nwxzypz medication 2. Asymptomatic hypertension, medication refill I prescribed 90 day prescription of amlodipine 10 mg. Critical care attestation.: If time is entered above; I have spent that time in minutes in the direct care of this critically ill patient, excluding procedure time. ED Disposition Clinical Impression: Dermatitis, Excess sun exposure, Medication refill Disposition: TO HOME OR SELFCARE Is pt being admited?: No Does the pt Need Aspirin: No Condition: Stable Instructions: Chronic Hypertension (ED) Prescriptions: Amlodipine Besylate [Norvasc] 10 mg PO DAILY #90 tablet Referrals: CALLUM PUGH MD [Primary Care Provider] - 3-5 Days [facility] [Outside] - 3-5 Days
== END 2018-08-22 21:35 | disposition home or self-care (01) ==
LOC: ED 18:05
DX: L30.9 Dermatitis, unspecified (principal); Z76.0 Encounter for issue of repeat prescription; I10 Essential (primary) hypertension; F31.9 Bipolar disorder, unspecified; Z79.899 Other long term (current) drug therapy; Z90.49 Acquired absence of other specified parts of digestive tract; Z88.8 Allergy status to other drugs, medicaments and biological substances; Z91.040 Latex allergy status; Z77.123 Contact with and (suspected) exposure to radon and other naturally occurring radiation
CPT/HCPCS: 99282

== ENCOUNTER 2018-10-24 10:41 | Emergency (ER) | payer MEDICAID ==
[2018-10-24 11:52] VITALS: BP 127/82
--- NOTE | 2018-10-24 11:54 | Event Note ---
ED Screening Note ED Screening Note: pt presents for right sided YEBOAH for two weeks states that her vision feels blurry states she has a hx of HTN pt takes amlodipine for her blood pressure pt also takes trazadone and clonezapam does not have a PCP has not taken anything for her headache PSHx tubal ligation has not had her glasses prescription checked in a long time no numbness or weakness This initial assessment/diagnostic orders/clinical plan/treatment(s) is/are subject to change based on patients health status, clinical progression and re- assessment by fellow clinical providers in the ED. Further treatment and workup at subsequent clinical providers discretion. Patient/guardian urged not to elope from the ED as their condition may be serious if not clinically assessed and managed.
--- NOTE | 2018-10-24 13:18 | Emergency Department Report ---
HPI - General Chief Complaint: Headache Time Seen by Provider: 10/24/18 11:49 - HPI HPI: 33-year-old female presents to the emergency department with a complaint of a recurrent or chronic headache management going on for the past 2 months. She feels like it starts in the back of her head and radiates towards the front. It will sometimes be associated with some dizziness and blurry vision. Patient does wear glasses admits that her prescription could be off. She also says that it could be related to her blood pressure. She checked her blood pressure yesterday and it was 180/70. She does have a history of hypertension for which she takes 10 mg of amlodipine. She also has a past medical history of depression and bipolar disorder for which she takes trazodone, clonazepam and sertraline. She does not have a primary care physician. She denies any fever, neck pain, slurred speech or any neurological deficits. She has not taken anything else for her symptoms prior to presentation. ED Past Medical Hx - Past Medical History Previous Medical History?: Yes Hx Hypertension: Yes Hx Congestive Heart Failure: No Hx Diabetes: No Hx Deep Vein Thrombosis: No Hx Renal Disease: No Hx Sickle Cell Disease: No Hx Seizures: No Hx Psychiatric Treatment: Yes (depression, bi polar) Hx Asthma: No Hx COPD: No Hx HIV: No - Surgical History Past Surgical History?: Yes Hx Cholecystectomy: Yes Additional Surgical History: T&A - Social History Smoking Status: Never Smoker Substance Use Type: None - Medications Home Medications: Home Medications Medication Instructions Recorded Confirmed Last Taken Type HYDROcodone/APAP 5-325 [[place] 1 each PO Q6HR PRN #20 tablet 06/26/13 03/22/16 Unknown Rx 5-325 mg TAB] Orphenadrine (Nf) [Norflex] 100 mg PO Q12H PRN #14 tablet 06/26/13 03/22/16 Unknown Rx Amlodipine Besylate [Norvasc] 10 mg PO DAILY #90 tablet 08/22/18 Unknown Rx ED Review of Systems ROS: Stated complaint: EYE PRESSURE/HEAD PAIN Other details as noted in HPI Comment: All other systems reviewed and negative Constitutional: denies: chills, fever Eyes: vision change (intermittent blurry vision). denies: eye pain ENT: denies: ear pain, throat pain Respiratory: denies: cough, shortness of breath Cardiovascular: denies: chest pain, palpitations Gastrointestinal: denies: abdominal pain, vomiting Musculoskeletal: denies: back pain, arthralgia Neurological: headache. denies: weakness, numbness, paresthesias, confusion Physical Exam - Physical Exam Vital Signs: Vital Signs 10/24/18 11:49 Temperature 98.4 F Pulse Rate 66 Respiratory 16 Rate Blood Pressure 127/82 O2 Sat by Pulse 98 Oximetry Physical Exam: GENERAL: The patient is well-developed well-nourished. HENT: Normocephalic. Atraumatic. Patient has moist mucous membranes. EYES: Extraocular motions are intact. Pupils equal reactive to light bilaterally. NECK: Supple. Trachea is midline. CHEST/LUNGS: Clear to auscultation. There is no respiratory distress noted. HEART/CARDIOVASCULAR: Regular. There is no tachycardia. There is no murmur. ABDOMEN: Abdomen is soft, nontender. Patient has normal bowel sounds. There is no abdominal distention. SKIN: Skin is warm and dry. NEURO: The patient is awake, alert, and oriented. The patient is cooperative. The patient has no focal neurologic deficits. Normal speech. Cranial nerves II through XII grossly intact. MUSCULOSKELETAL: There is no tenderness or deformity. There is no evidence of acute injury. ED Course Vital Signs 10/24/18 11:49 Temperature 98.4 F Pulse Rate 66 Respiratory 16 Rate Blood Pressure 127/82 O2 Sat by Pulse 98 Oximetry ED Medical Decision Making - Radiology Data Radiology results: report reviewed CT of the head does not show any acute intracranial process including no ische lavinia, shift, mass, bleeding or skull fracture. - Medical Decision Making This patient presents to the emergency department with a complaint of 2 months of a headache that starts in the back of the head and radiates towards the front. On examination she does not have any focal, motor or sensory deficits in her cranial nerves are intact. A CT scan of the head was done that does not show any acute bleed, shift, mass, ischemia, or any other acute process. Labs have been unremarkable including CBC and metabolic panel. Her vital signs stable throughout her ED course including being afebrile. After the negative CT scan was done, the patient was given a shot of Toradol. Upon reevaluation she is feeling greatly improved. For all these reasons she appears safe for discharge home at this time. She's been given a referral for primary care and neurology. She will return to the ER with any worsening of her symptoms or any acute distress. - Differential Diagnosis tension headache, migraine, cluster headache, malignancy Critical Care Time: No Critical care attestation.: If time is entered above; I have spent that time in minutes in the direct care of this critically ill patient, excluding procedure time. ED Disposition Clinical Impression: Headache Qualifiers: Headache type: unspecified Headache chronicity pattern: unspecified pattern Intractability: not intractable Qualified Code(s): R51 - Headache Disposition: DC- TO HOME OR SELFCARE Is pt being admited?: No Condition: Stable Instructions: Cluster Headache (ED), Tension Headache (ED), Acute Headache (ED) Additional Instructions: Please follow-up with a primary care physician in the next few days. I'm giving you a referral for a local neurologist, Dr. Stinson, to follow up regarding your headaches. Return to the emergency Department with any worsening of your symptoms or any acute distress. Referrals: FRANKLIN STINSON MD [Referring] - 3-5 Days SHONDA LANDEROS MD [Staff Physician] - 3-5 Days [facility] [Outside] - 3-5 Days Time of Disposition: 16:41
--- NOTE | 2018-10-24 15:20 | Cat Scan Report ---
CT HEAD WITHOUT CONTRAST INDICATION : Headache. TECHNIQUE: Axial imaging performed from the skull apex through the skull base without the use of con trast. Sagittal and coronal reformatted images. All CT scans at this location are performed using C T dose reduction for ALARA by means of automated exposure control. COMPARISON: None FINDINGS: Parenchyma: No acute intracranial hemorrhage or parenchymal abnormality. Ventricles: Ventricles are normal in size and appear symmetric. Bones: No acute osseous abnormality. Sinuses: There is mild mucosal thickening and small fluid in the left maxillary sinus. The remaining paranasal sinuses and mastoid air cells are well aerated. Soft tissues: Soft tissues including the orbits appear normal. IMPRESSION: Unremarkable CT brain. Left maxillary sinus disease, likely chronic. Signer Name: Vijay Cochran Jr, MD Signed: 10/24/2018 3:16 PM Workstation Name: [id number]
[2018-10-24] MEDS ORDERED: TORADOL IM ONE (15:24)
== END 2018-10-24 16:58 | disposition home or self-care (01) ==
LOC: ED 10:41
DX: R51 Headache (principal); R42 Dizziness and giddiness; H53.8 Other visual disturbances; I10 Essential (primary) hypertension; F31.9 Bipolar disorder, unspecified; Z90.49 Acquired absence of other specified parts of digestive tract; Z79.899 Other long term (current) drug therapy; Z91.040 Latex allergy status; Z88.1 Allergy status to other antibiotic agents
CPT/HCPCS: 70450; 96372; 99283; J1885

== ENCOUNTER 2020-09-12 11:08 | Emergency (ER) | payer MEDICAID ==
[2020-09-12 11:54] VITALS: BP 120/80
--- NOTE | 2020-09-12 12:23 | Emergency Department Report ---
ED ENT HPI - General Chief complaint: Dental/Oral Stated complaint: ALLERGIC REACTION,LFT SIDE FACE Time Seen by Provider: 09/12/20 12:08 Source: patient Mode of arrival: Ambulatory Limitations: No Limitations - History of Present Illness Initial comments: Patient presents to the ER today with concern for possible allergic reaction. Patient states that this morning after chewing a spoonful of her usual cereal and 2% milk she is started noticing swelling to the left side of her face and it also felt a little tingly and sore to touch. She also reports some swelling down underneath into her left neck. She states that this ER she ate this morning, she has eaten that before and the milk is not any different. She denies any other new contacts such as new medications, face products, lotions, or any other new meds. She denies any sore throat or ear pain. She denies any lip swelling tongue swelling or throat swelling. She denies any coughing wh eezing, or chest pain. She denies any rash. She states that there is no itching. She denies any fever or chills. She denies any similar symptoms in the past. MD complaint: other (Left sided facial swelling ) -: Sudden (This morning) - Related Data Previous Rx's Medication Instructions Recorded Last Taken Type HYDROcodone/APAP 5-325 [[place] 1 each PO Q6HR PRN #20 tablet 06/26/13 Unknown Rx 5-325 mg TAB] Orphenadrine (Nf) [Norflex] 100 mg PO Q12H PRN #14 tablet 06/26/13 Unknown Rx Amlodipine Besylate [Norvasc] 10 mg PO DAILY #90 tablet 08/22/18 Unknown Rx Clindamycin [Clindamycin CAP] 300 mg PO Q8H #21 cap 09/12/20 Unknown Rx predniSONE [Deltasone] 40 mg PO QDAY #10 tab 09/12/20 Unknown Rx Allergies Allergy/AdvReac Type Severity Reaction Status Date / Time diphenhydramine HCl Allergy Swelling Verified 09/12/20 11:47 [From Benadryl] latex Allergy Rash Verified 09/12/20 11:47 ED Dental HPI - General Chief complaint: Dental/Oral Stated complaint: ALLERGIC REACTION,LFT SIDE FACE Time Seen by Provider: 09/12/20 12:08 Source: patient Mode of arrival: Ambulatory Limitations: No Limitations - Related Data Previous Rx's Medication Instructions Recorded Last Taken Type HYDROcodone/APAP 5-325 [[place] 1 each PO Q6HR PRN #20 tablet 06/26/13 Unknown Rx 5-325 mg TAB] Orphenadrine (Nf) [Norflex] 100 mg PO Q12H PRN #14 tablet 06/26/13 Unknown Rx Amlodipine Besylate [Norvasc] 10 mg PO DAILY #90 tablet 08/22/18 Unknown Rx Clindamycin [Clindamycin CAP] 300 mg PO Q8H #21 cap 09/12/20 Unknown Rx predniSONE [Deltasone] 40 mg PO QDAY #10 tab 09/12/20 Unknown Rx Allergies Allergy/AdvReac Type Severity Reaction Status Date / Time diphenhydramine HCl Allergy Swelling Verified 09/12/20 11:47 [From Benadryl] latex Allergy Rash Verified 09/12/20 11:47 ED Review of Systems ROS: Stated complaint: ALLERGIC REACTION,LFT SIDE FACE Other details as noted in HPI Comment: All other systems reviewed and negative Constitutional: denies: chills, fever Eyes: denies: eye pain, eye discharge, vision change ENT: other (Left-sided facial swelling). denies: ear pain, throat pain, dental pain, hearing loss, epistaxis, congestion Respiratory: denies: cough, shortness of breath, SOB with exertion, SOB at rest, wheezing Cardiovascular: denies: chest pain, palpitations, dyspnea on exertion, edema, syncope, paroxysmal nocturnal dyspnea Gastrointestinal: denies: abdominal pain, nausea, diarrhea, constipation, hematemesis, hematochezia Genitourinary: denies: urgency, dysuria, frequency, hematuria, discharge, abnormal menses, dyspareunia Musculoskeletal: denies: back pain, joint swelling, arthralgia, myalgia Skin: denies: rash, lesions, change in color, change in hair/nails, pruritus Neurological: denies: headache, weakness, numbness, paresthesias, confusion, abnormal gait, vertigo Psychiatric: denies: anxiety, depression, auditory hallucinations, visual hallucinations, homicidal thoughts, suicidal thoughts Hematological/Lymphatic: denies: easy bleeding, swollen glands ED Past Medical Hx - Past Medical History Hx Hypertension: Yes Hx Congestive Heart Failure: No Hx Diabetes: No Hx Deep Vein Thrombosis: No Hx Renal Disease: No Hx Sickle Cell Disease: No Hx Seizures: No Hx Psychiatric Treatment: Yes (depression, bi polar) Hx Asthma: No Hx COPD: No Hx HIV: No - Surgical History Hx Cholecystectomy: Yes Additional Surgical History: T&A - Social History Smoking Status: Never Smoker Substance Use Type: Alcohol - Medications Home Medications: Home Medications Medication Instructions Recorded Confirmed Last Taken Type HYDROcodone/APAP 5-325 [[place] 1 each PO Q6HR PRN #20 tablet 06/26/13 03/22/16 Unknown Rx 5-325 mg TAB] Orphenadrine (Nf) [Norflex] 100 mg PO Q12H PRN #14 tablet 06/26/13 03/22/16 Unknown Rx Amlodipine Besylate [Norvasc] 10 mg PO DAILY #90 tablet 08/22/18 Unknown Rx Clindamycin [Clindamycin CAP] 300 mg PO Q8H #21 cap 09/12/20 Unknown Rx predniSONE [Deltasone] 40 mg PO QDAY #10 tab 09/12/20 Unknown Rx ED Physical Exam - General Limitations: No Limitations General appearance: alert, in no apparent distress - Head Head exam: Present: atraumatic, normocephalic - Eye Eye exam: Present: normal appearance, PERRL, EOMI Pupils: Present: normal accommodation - ENT ENT exam: Present: normal exam, mucous membranes moist, TM's normal bilaterally, normal external ear exam, other (Patient does have some mild swelling noted to the preauricular area extending down into the angle of the mandible on the left side with mild tenderness to palpation. No erythema or bruising noted.) - Neck Neck exam: Present: normal inspection, full ROM, lymphadenopathy (Swollen left submandibular, and left anterior cervical lymph node. No overlying cellulitis.) ED Course Vital Signs 09/12/20 11:53 Temperature 98.5 F Pulse Rate 65 Respiratory 18 Rate Blood Pressure 120/80 O2 Sat by Pulse 98 Oximetry ED Medical Decision Making - Medical Decision Making History and exam concerning for possible parotitis on the left side versus allergic reaction. Patient currently is not in any respiratory distress. Her airway is intact. She has no swelling noted to her tongue, throat nor her lips nor to the rest of her face. She is talking in full sentences. She has no stridor on exam. She is tolerating her secretions well. She has no trismus. She has no rash or swelling to the rest of her body. Her vital signs are stable. Discussed suspected diagnoses with patient. Will start on antibiotics to cover for parotid gland infection as well as put on prednisone for possible allergic reaction, and states she is allergic to Benadryl, she can take [id number] Claritin. I also recommend that she suck some sour candy throughout the day but she understands if any point her symptoms worsens in any way to return to the ER. Patient expressed understanding of all instructions and agree with plan. Patient stable at time of discharge Critical care attestation.: If time is entered above; I have spent that time in minutes in the direct care of this critically ill patient, excluding procedure time. ED Disposition Clinical Impression: Swelling of left side of face, Parotitis, acute, Allergic reaction Disposition: DC-01 TO HOME OR SELFCARE Is pt being admited?: No Does the pt Need Aspirin: No Condition: Stable Instructions: Parotitis, [id number], Allergies, Adult, [id number] Additional Instructions: Take the the clindamycin and prednisone as prescribed. You can also take continue taking claritin daily. I recommend that suck on sour candy through out the day. Take motrin and tylenol as needed for pain. Return to ED if worse. Prescriptions: Clindamycin [Clindamycin CAP] 300 mg PO Q8H #21 cap predniSONE [Deltasone] 40 mg PO QDAY #10 tab Referrals: PRIMARY CARE, [Primary Care Provider] - 3-5 Days Forms: Work/School Release Form(ED) Time of Disposition: 12:25
== END 2020-09-12 12:30 | disposition home or self-care (01) ==
LOC: ED 11:08
DX: T78.40XA Allergy, unspecified, initial encounter (principal); R22.9 Localized swelling, mass and lump, unspecified; K11.20 Sialoadenitis, unspecified; I10 Essential (primary) hypertension; F32.9 Major depressive disorder, single episode, unspecified; Z98.890 Other specified postprocedural states; Z88.2 Allergy status to sulfonamides; Z91.040 Latex allergy status; X58.XXXA Exposure to other specified factors, initial encounter
CPT/HCPCS: 99282